=== PATIENT | male | born 1955 | race Caucasian/White ===

== ENCOUNTER 2019-10-01 09:18 | Inpatient (IN) | payer OTHER ==
[~2019-10-01] VITALS: Ht 182.8 cm; Wt 87.3 kg
[2019-10-01 09:21] VITALS: BP 130/82
[2019-10-01 09:45] LABS: BASO % 0.8 % (0.0-1.0); EOS # 0.1 10*3/uL (0.0-0.4); EOS % 1.4 % (1.0-4.0); HEMATOCRIT 49.5 % (42.0-52.0); HEMOGLOBIN 16.5 g/dl (14.0-18.0); LYMPH # 1.7 10*3/uL (1.3-4.4); LYMPH % 35.6 % (27.0-41.0); MEAN CORPUSCULAR HGB CONC 33.3 g/dl (33.0-37.0); MEAN PLATELET VOLUME 8.8 fl (9.6-12.3); MONO # 0.4 10*3/uL (0.1-1.0); MONO % 7.8 % (3.0-9.0); NEUT # 2.6 10*3/uL (2.3-7.9); PLATELET COUNT AUTOMATED 252 10*3/uL (130-400); RED BLOOD COUNT 5.32 10*6/uL (4.50-5.90); RED CELL DISTRI WIDTH 12.6 % (0-14.5); WHITE BLOOD COUNT 4.9 10*3/uL (4.8-10.8)
[2019-10-01 09:57] LABS: ACT PARTIAL THROMBO TIME 25.9 SECONDS (20.0-32.1)
[2019-10-01 10:03] LABS: LIPASE 211 U/L (73-393)
[2019-10-01 10:07] LABS: ALBUMIN 3.7 gm/dl (3.1-4.5); ALKALINE PHOSPHATASE 97 U/L (45-117); BUN 16 mg/dl (7-24); CHLORIDE 114 mmol/L (98-107); CREATININE 0.97 mg/dL (0.70-1.30); POTASSIUM 4.1 mmol/L (3.5-5.1); SGOT/AST 24 IU/L (3-35); SGPT/ALT 43 U/L (12-78); SODIUM 145 mmol/L (136-145); TOTAL PROTEIN 6.8 gm/dL (6.4-8.2)
[2019-10-01 10:08] LABS: TROPONIN I < 0.015 ng/ml (<0.045)
[2019-10-01 10:16] LABS: ACETAMINOPHEN (TYLENOL) < 5.0 ug/ml (10-30)
[2019-10-01 11:17] VITALS: BP 145/87
[2019-10-01 11:23] LABS: BILIRUBIN NEGATIVE (NEGATIVE); BLOOD NEGATIVE (NEGATIVE); CLARITY CLEAR (CLEAR); COLOR YELLOW (YELLOW); GLUCOSE NEGATIVE (NEGATIVE); KETONE NEGATIVE (NEGATIVE); LEUKO ESTERASE NEGATIVE (NEGATIVE); NITRITE NEGATIVE (NEGATIVE); SPECIFIC GRAVITY 1.015 (1.005-1.030); UROBILINOGEN 0.2 E.U./dl (0.2-1.0)
[2019-10-01 11:30] LABS: RBC 0-2 rbc/hpf (0-2); WBC 0-2 wbc/hpf (0-5)
[2019-10-01 11:31] LABS: URINE AMPHETAMINES < 1000 (1000ng/ml); URINE BARBITURATES < 200 (200ng/ml); URINE BENZODIAZEPINES < 200 (200ng/ml); URINE CANNABINOIDS (THC) < 50 (50ng/ml); URINE COCAINE < 300 (300ng/ml); URINE METHADONE < 300 (300ng/ml); URINE OPIATES < 300 (300ng/ml)
[2019-10-01 11:32] LABS: URINE PHENCYCLIDINE < 25 (25ng/ml)
[2019-10-01 12:35] VITALS: BP 130/90
--- NOTE | 2019-10-01 12:35 | NUR ---
Time: 1234 A 64 year old MALE admitted to 4E under services of EMILIA PORTILLO DO. Pt. arrived via wheel chair from ER. Chief complaint: ALCOHOL INTOXICATION, METABOLIC ENCEPHALOPATHY. JOHNATHAN CLAY
[2019-10-01] MEDS ORDERED: PROSCAR5 M1 PO (13:29)
[2019-10-01] MEDS ORDERED: FLOMAX0.4 MG PO (13:30)
[2019-10-01 16:00] VITALS: BP 151/84
--- NOTE | 2019-10-01 19:35 | NUR ---
24 HOUR CHART CHECK COMPLETED
[2019-10-01 20:00] VITALS: BP 154/82
--- NOTE | 2019-10-01 20:10 | NUR ---
PATIENT ASSESSMENT COMPLETED WITHOUT INCIDENT, FAMILY AT BEDSIDE. PATIENT DENIES ANY CHEST PAIN/PRESSURE, SHORTNESS OF BREATH, OR ANY OTHER NEEDS AT THIS TIME. ADAMANT THAT SHE IS STAY TONIGHT IN ROOM WITH PATIENT, POLICY ON FAMILY STAYING IN ROOM WITH PATIENT EXPLAINED, STATED THAT SHE LIVES 3 HOURS AWAY AND THAT THE WEATHER IS SUPPOSED TO TURN BAD TONIGHT. OFFERED TO GIVE DIRECTIONS TO NEARBY HOTELS, STATED THAT SHE WOULD JUST STAY IN THE WAITING ROOM. CALL LIGHT WITHIN REACH WILL CONTINUE TO MONITOR.
[2019-10-02] VITALS: BP 146/76
--- NOTE | 2019-10-02 00:10 | NUR ---
PATIENT RESTING IN BED IN A POSITION OF COMFORT AT THIS TIME, NO SIGNS OR SYMPTOMS OF PAIN OR DISTRESS NOTED AT THIS TIME. CALL LIGHT WITHIN REACH, WILL CONTINUE TO MONITOR. REMAINS AT BEDSIDE IN RECLINER CHAIR.
[2019-10-02 05:44] LABS: ALBUMIN 3.4 gm/dl (3.1-4.5); ALKALINE PHOSPHATASE 96 U/L (45-117); BUN 14 mg/dl (7-24); CHLORIDE 112 mmol/L (98-107); CHOLESTEROL 178 mg/dL (<200); CREATININE 0.93 mg/dL (0.70-1.30); HDL CHOLESTEROL 73 mg/dl (40-60); LDL CHOLESTEROL 92 mg/dL (9-159); PHOSPHOROUS 3.3 mg/dL (2.5-4.9); SGOT/AST 16 IU/L (3-35); SGPT/ALT 36 U/L (12-78); SODIUM 144 mmol/L (136-145); TOTAL PROTEIN 6.1 gm/dL (6.4-8.2); TRIGLYCERIDES 65 mg/dl (<150); VLDL CHOLESTEROL 13 mg/dL (6-40)
[2019-10-02 05:49] LABS: THYROID STIM HORMONE (HS) 0.945 uIU/ml (0.358-4.75)
[2019-10-02 06:07] LABS: BASO % 0.4 % (0.0-1.0); EOS % 0.1 % (1.0-4.0); HEMOGLOBIN 15.7 g/dl (14.0-18.0); LYMPH # 1.5 10*3/uL (1.3-4.4); LYMPH % 15.5 % (27.0-41.0); MEAN CELL VOLUME 93.8 fl (80.0-94.0); MEAN CORPUSCULAR HGB 31.3 pg (27.0-31.0); MEAN CORPUSCULAR HGB CONC 33.4 g/dl (33.0-37.0); MEAN PLATELET VOLUME 9.1 fl (9.6-12.3); MONO # 0.5 10*3/uL (0.1-1.0); MONO % 4.9 % (3.0-9.0); NEUT # 7.6 10*3/uL (2.3-7.9); NEUT % 78.7 % (47.0-73.0); PLATELET COUNT AUTOMATED 251 10*3/uL (130-400); RED BLOOD COUNT 5.01 10*6/uL (4.50-5.90); RED CELL DISTRI WIDTH 12.6 % (0-14.5); WHITE BLOOD COUNT 9.7 10*3/uL (4.8-10.8)
[2019-10-02 07:03] LABS: VITAMIN D, 25-HYDROXY 17.6 ng/mL (30-100)
[2019-10-02 08:00] VITALS: BP 158/82
--- NOTE | 2019-10-02 08:40 | NUR ---
INITIAL ASSESSMENT COMPLETE. RESPS EASY ON RA. PT APPROPRIATE,ALERT AND [place].PT APPEARS SOMEWHAT ANXIOUS. EDUCATION PROVIDED REGARDING S/S ALCOHOL WITHDRAWAL. PT DENIES HEAVY ALCOHOL CONSUMPTION. SITTING AT BEDSIDE FROM [place].PT SEEMS RELUCTANT TO SPEAK ABOUT ETOH ABUSE IN PRESENCE.WILL CONTINUE TO MONITOR. CALL LIGHT IN REACH.
[2019-10-02] MEDS ORDERED: VITAMIN D32000 UNI1 PO (09:52)
--- NOTE | 2019-10-02 10:40 | NUR ---
Discharge instructions reviewed with patient/family. Patient receptive and verbalizes understanding. Follow-up care arranged. Written instructions given to patient/family. LUIS MORRIS
== END 2019-10-02 10:44 | disposition home or self-care (01) | DRG 280 ==
LOC: ED 09:18 → EDHOLD 11:15 → 4E 12:03
PROVIDERS: Emergency Medicine; Student in an Organized Health Care Education/Training Program; ADMIT Internal Medicine
DX: I21.9 Acute myocardial infarction, unspecified (principal); G93.41 Metabolic encephalopathy; E87.2 Acidosis; J98.11 Atelectasis; R55 Syncope and collapse; R41.2 Retrograde amnesia; F10.129 Alcohol abuse with intoxication, unspecified; E83.41 Hypermagnesemia; E87.8 Other disorders of electrolyte and fluid balance, not elsewhere classified; R73.9 Hyperglycemia, unspecified; E66.3 Overweight; N40.1 Benign prostatic hyperplasia with lower urinary tract symptoms; R39.11 Hesitancy of micturition; Z80.3 Family history of malignant neoplasm of breast; Z79.899 Other long term (current) drug therapy; Z68.26 Body mass index [BMI] 26.0-26.9, adult